=== PATIENT | male | born 1995 | race Caucasian/White ===

== ENCOUNTER 2025-01-18 00:32 | Emergency (ER) | payer OTHER ==
[~2025-01-18] VITALS: Ht 177.8 cm; Wt 105.4 kg
[2025-01-18 01:21] VITALS: BP 159/99; PULSE 78; RESP 20; TEMP 98.2; O2SAT 97
[2025-01-18 01:37] LABS: BASOPHIL # 0.0 10^3/uL (0.0-0.1); BASOPHIL % 0.4 % (0.2-1.2); EOSINOPHIL # 0.1 10^3/uL (0.0-0.2); EOSINOPHIL % 1.8 % (0.0-5.0); HEMATOCRIT(ML) 42.0 % (37.0-53.0); IG % 0.00 % (0.00-0.50); LYMPHOCYTES # 2.90 10^3/uL1 (1.0-4.8); LYMPHOCYTES % 42.6 % (24.0-44.0); MEAN CORP HGB 32.7 pg (26-34); MEAN CORP HGB CONCENTRATION 35.2 g/dL (33-36.5); MEAN CORP VOLUME 92.7 fL (78-100); MONOCYTES # 0.6 10^3/uL (0.3-0.8); MONOCYTES % 8.8 % (5.0-12.0); NEUTROPHIL # 3.2 10^3/uL (1.8-7.7); NEUTROPHILS % 46.4 % (41.0-85.0); RED BLOOD CELL 4.53 10^6/uL (4.50-5.90); RED CELL DISTRIBUTION WIDTH 12.5 % (11.5-14.5); WHITE BLOOD CELL 6.8 10^3/uL (4.5-11.0)
[2025-01-18 01:51] LABS: LEUKOCYTE ESTERASE ,URINE NEGATIVE (NEGATIVE); NITRATE,URINE NEGATIVE (NEGATIVE)
[2025-01-18 01:53] LABS: APPEARANCE,URINE CLEAR; UA COLOR YELLOW
[2025-01-18 02:02] LABS: UAMPH METHAMP(SCRN) NEGATIVE (co1000ng/mL); UR MDMA (ECSTASY) SCRN NEGATIVE (c/o300ng/mL); UR METHADONE SCRN NEGATIVE (c/o300ng/mL); UR OPIATE SCRN NEGATIVE (c/o300ng/mL); UR PHENCYCLIDINE (PCP) SCRN NEGATIVE (c/o 25ng/mL); UR TETRAHYDROCANNABINOL SCRN NEGATIVE (c/o 50ng/mL)
[2025-01-18 02:10] LABS: ALANINE AMINOTRANSFERASE(ML) 65.0 U/L (12-78); ALBUMIN(ML) 4.4 g/dL (3.4-5.0); CREATININE SERUM 1.07 mg/dL (0.59-1.40); EST GFR, NON-AA 82.3 (>/=60); TROPONIN I HIGH SENSITIVITY 6.0 ng/L (0-75)
[2025-01-18 02:33] VITALS: BP 155/97; PULSE 75; RESP 20; TEMP 98.2; O2SAT 97
== END 2025-01-18 02:37 | disposition home or self-care (01) ==
LOC: ER 00:32
DX: S86.111A Strain of other muscle(s) and tendon(s) of posterior muscle group at lower leg level, right leg, initial encounter (principal); M79.661 Pain in right lower leg; E78.00 Pure hypercholesterolemia, unspecified; Z79.899 Other long term (current) drug therapy; X58.XXXA Exposure to other specified factors, initial encounter; Y93.89 Activity, other specified; Y92.89 Other specified places as the place of occurrence of the external cause; Y99.8 Other external cause status
CPT/HCPCS: 36415; 80053; 80307; 81003; 83735; 84443; 84484; 85025; 85379; 93005; 93971; 99284